=== PATIENT | male | born 1975 | race Caucasian/White ===

== ENCOUNTER 2017-11-11 10:22 | Day surgery (SDC) | payer MEDICAID, OTHER ==
[~2017-11-11] VITALS: Ht 180.3 cm; Wt 104.1 kg
[~2017-11-11 10:22] MED LIST: BUPIVACAINE HCL/PF 0.5% 30 ML VIAL ONE; CeFAZolin 2 GM/DEXTROSE 50 ML IV ONE; RINGERS SOLUTION,LACTATED 1,000 ML IV ONE; SODIUM CL IRRIG SOLN BAG 9,000 ML IRRIG ONE; VANCOMYCIN HCL 1 GM/VIAL ONE
[2017-11-11] MEDS ORDERED: LIDOCAINE HCL/PF 2% 5 ML VIAL INJ ONE (10:23)
[2017-11-11] MEDS ORDERED: PROPOFOL 1% 20 ML VIAL IVP ONE (10:23)
[2017-11-11] MEDS ORDERED: SUCCINYLCHOLINE CHLORIDE 20 MG/ML 10 ML VIAL IVP ONE (10:23)
[2017-11-11] MEDS ORDERED: ROCURONIUM BROMIDE 10 MG/ML 5 ML VIAL IVP ONE (10:23)
[2017-11-11] MEDS ORDERED: MIDAZOLAM HCL 2 MG/2 ML VIAL IVP ONE (12:00)
[2017-11-11] MEDS ORDERED: HYDROmorphone 2 MG/ML SYRINGE IVP ONE (12:00)
[2017-11-11] MEDS ORDERED: FentaNYL CITRATE-PF 250 MCG/5 ML VIAL IVP ONE (12:00)
[2017-11-11] MEDS ORDERED: MEPERIDINE-PF 25 MG/ML SYRINGE IVP PRN (12:45)
[2017-11-11] MEDS ORDERED: MIDAZOLAM HCL 2 MG/2 ML VIAL IVP PRN (12:45)
[2017-11-11] MEDS ORDERED: ONDANSETRON HCL 4 MG/2 ML VIAL IVP PRN (12:45)
[2017-11-11] MEDS ORDERED: HYDROmorphone 2 MG/ML SYRINGE IVP PRN (12:45)
[2017-11-11] MEDS ORDERED: ACETAMINOPHEN 1000 MG/ISO-OSM 100 ML IV ONE ×2 (12:45→14:06)
[2017-11-11] MEDS ORDERED: FentaNYL CITRATE-PF 100 MCG/2 ML VIAL IVP PRN (12:45)
== END 2017-11-11 15:45 | disposition home or self-care (01) ==
LOC: SURGERY 10:22
PROVIDERS: ATTEND Orthopaedic Surgery
DX: M75.42 Impingement syndrome of left shoulder (principal); M65.812 Other synovitis and tenosynovitis, left shoulder; M19.012 Primary osteoarthritis, left shoulder; M75.82 Other shoulder lesions, left shoulder; E66.3 Overweight; Z98.890 Other specified postprocedural states; Z68.32 Body mass index [BMI] 32.0-32.9, adult
CPT/HCPCS: 29822; 29824; 29826; 29828; C1713; J0131; J0330; J0690; J1170; J2250; J2704; J3010; J3490 ×3; J7120; J3370